=== PATIENT | male | born 1960 | race Caucasian/White ===

== ENCOUNTER 2024-10-21 10:49 | Emergency (ER) | payer OTHER, SELFPAY ==
[2024-10-21 11:25] VITALS: BP 125/83; PULSE 75; RESP 16; TEMP 36.9; O2SAT 95; BMI 37.3
--- NOTE | 2024-10-21 11:28 | XR_ITS ---
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
--- NOTE | 2024-10-21 11:28 | XR_ITS ---
EXAMINATION: Ankle, left 3 views . Technique: Ankle AP, oblique, lateral 3 views Date and time of exam: October 21, 2024 1136 hours INDICATIONS: Left ankle pain beginning 3 days ago. FINDINGS: No acute fracture Mild to moderate osteoarthritis tibiotalar joint 2 mm plantar bony calcaneal spur No fracture IMPRESSION: Mild to moderate osteoarthritis tibiotalar joint 2 mm plantar bony calcaneal spur
--- NOTE | 2024-10-21 11:28 | PD.EDLOWEX ---
Lower Extremity Injury RME/HPI General Chief Complaint: Extremity Injury, Lower Stated Complaint: think broke left ankle x2 days ago/ woke up Time Seen by Provider: 10/21/24 10:59 Arrival date/time: 10/21/24 10:49 63-year-old male presents to the emergency department today complains of left foot and ankle pain patient reports pain ongoing for last 2 days patient reports no direct trauma or injury patient reports no calf pain Limitations: no limitations Related Data Previous Rx's ?Medication ?Instructions ?Recorded lisinopril 40 mg tablet 40 mg PO QDAY #30 tabs 03/24/22 nifedipine 60 mg tablet,extended 60 mg PO QDAY #30 tabs 03/24/22 release cyclobenzaprine 5 mg tablet 5 mg PO TID PRN muscle spasm #14 03/25/22 tabs lidocaine 5 % topical patch 1 patch topical QDAY #30 ea 03/25/22 Allergies Allergy/AdvReac Type Severity Reaction Status Date / Time No Known Allergies Allergy Verified 10/21/24 10:50 Review of Systems Review of Systems Systems Reviewed: All systems reviewed, normal except as documented Constitutional Constitutional: Reports system reviewed and no additional complaints, except as documented, Denies fever(s) and Denies headache(s) Eyes Eyes: Reports system reviewed and no additional complaints, except as documented and Denies blurry vision ENT Ears, Nose, Mouth, and Throat: Reports system reviewed and no additional complaints, except as documented, Denies headache(s), Denies nasal congestion and Denies nasal discharge Cardiovascular Cardiovascular: Reports system reviewed and no additional complaints, except as documented, Denies chest pain and Denies dyspnea Respiratory Respiratory: Reports system reviewed and no additional complaints, except as documented, Denies chest congestion, Denies cough and Denies dyspnea Gastrointestinal Gastrointestinal: Reports system reviewed and no additional complaints, except as documented and Denies abdominal pain Musculoskeletal Musculoskeletal: Reports system reviewed and no additional complaints, except as documented, Reports arthralgias, Denies deformity and Denies joint swelling Integumentary/Breasts Skin/Breast: Reports system reviewed and no additional complaints, except as documented and Denies rash Neurologic Neurologic: Reports system reviewed and no additional complaints, except as documented, Reports as per HPI and Denies headache(s) Past Medical History Past Medical History CARDIAC: Positive Cardiac Disorders, Hypercholesterolemia, Edema and Hypertension; Negative Congestive Heart Failure RESPIRATORY: Negative Chronic Obstructive Pulmonary Disease (COPD) GENITOURINARY: Negative Renal Disease ENDOCRINE: Negative Diabetes Mellitus Type 1 or Diabetes Mellitus Type 2 OTHER HISTORY: Positive Falls; Negative Blood Transfusions or Cancer Family History FAMILY HISTORY: Positive Family Cardiac Disorders Social History SMOKING STATUS: Never smoker SUBSTANCE USE: does not use ED Exam General Limitations: Present no limitations General appearance: Present alert and in no apparent distress Head Head exam: Present atraumatic, normocephalic and normal inspection Eye Eye exam: Present normal appearance, PERRL and EOMI ENT ENT exam: Present normal exam, normal oropharynx and mucous membranes moist Neck Neck exam: Present normal inspection, full ROM and trachea midline Chest Chest inspection: Present normal inspection and symmetric chest wall rise Respiratory Respiratory exam: Present normal lung sounds bilaterally Cardiovascular Cardiovascular exam: Present regular rate, normal rhythm and normal heart sounds Abdominal Exam Abdominal exam: Present soft and normal bowel sounds Extremities Exam Extremities exam: Present normal inspection and full ROM Back Exam Back exam: Present normal inspection and full ROM Neurological Exam Neurological exam: Present alert, oriented X3, CN II-XII intact, normal gait and reflexes normal; Absent motor sensory deficit Psychiatric Psychiatric exam: Present normal affect and normal mood Skin Skin exam: Present warm, dry, intact and normal color Course Quality Measures none Orders Category Date Time Status XR ankle comp LT min 3V Stat Exams 10/21/24 11:28 Completed XR foot comp LT min 3V Stat Exams 10/21/24 11:28 Completed Vital Signs Vital signs: Vital Signs Temperature 98.5 F 10/21/24 11:25 Pulse Rate 75 10/21/24 11:25 Respiratory Rate 16 10/21/24 11:25 Blood Pressure 125/83 10/21/24 11:25 Pulse Oximetry (%) 95 10/21/24 11:25 Oxygen Delivery Method Room Air 10/21/24 11:25 O2 saturation 95% room air within normal limits Extremity Injury, Lower MDM Narrative MDM Narrative:: 63-year-old male presents to the emergency department today complains of left foot and ankle pain patient reports pain ongoing for last 2 days patient reports no direct trauma or injury patient reports no calf pain On exam patient has tenderness left foot and ankle X-ray of the left foot and ankle obtained no acute fracture dislocation noted patient does have arthritis Patient has an ankle brace Patient discharged home in no distress to follow-up with primary care doctor in the next 24 to 48 hours and for any worsening symptoms to return to the ER immediately Patient data External records reviewed:: [facility] previous records Clinical information provided by:: patient Social determinants that could affect healthcare access:: none Patient has the following chronic illnesses:: See history How is presenting disease/condition affected by chronic disease/condition?: caused by Evaluation data The following diagnostics were reviewed and interpreted by me:: radiology exam(s) Lab and/or radiology exams considered but not ordered:: Radiology obtain Interpretation Summary: Reviewed by me Medications / Prescriptions Medications or Prescriptions considered but not ordered:: Given Medication administrations:: Given Consultations Consultation(s) initiated? (list below): No Diagnosis Extremity Injury, Lower Differential Diagnosis: ankle sprain and strain, fracture of toe and ankle fracture Most likely diagnosis given after review of the tests above:: Ankle sprain Admission Indicated Admission indicated?: not indicated Admission Request Was there a request for admission?: No Disposition Plan Disposition Plan: Discharge Discharge Attestation Discharge Attestation: The patient and all family members were given an opportunity to ask questions and understood the discharge instructions. Discharge instructions specifically effects, indications for sooner follow up or return to the emergency department, and the expected course of current diagnosis. Patient condition: Stable Discharge Plan Plan Patient Disposition: HOME (Self Care) Disposition Comment: Stable Prescriptions/Referrals Prescriptions/Med Rec: No Action lidocaine 5 % adhesive patch,medicated 1 patch topical QDAY Qty: 30 0RF Rx Instructions: leave on most painful area for up to 12 hrs cyclobenzaprine 5 mg tablet 5 mg PO TID PRN (Reason: muscle spasm) Qty: 14 0RF lisinopril 40 mg tablet 40 mg PO QDAY Qty: 30 0RF nifedipine 60 mg tablet extended release 60 mg PO QDAY Qty: 30 0RF Problem List Clinical Impression: Ankle arthritis Patient/Caregiver Discharge Instructions Education Materials: ED Osteoarthritis Additional Instructions: Please follow up with your primary care doctor in the next 24-48hrs for any worsening symptoms return here immediately Print Language: Estonian Stand Alone Forms: Mera Award Info., Patient Portal Info Letter PA/[employer] Supervising Physician PA/[employer] Supervising Physician: Dr. Baker
== END 2024-10-21 12:26 | disposition home or self-care (01) ==
PROVIDERS: Emergency Provider Emergency Medicine
DX: M19.072 Primary osteoarthritis, left ankle and foot (principal)
CPT/HCPCS: 73610; 73630; 99283

== ENCOUNTER → 2025-06-11 | Outpatient (CLI) | payer OTHER, SELFPAY ==
--- NOTE | 2025-06-11 10:30 | XR_ITS ---
Examination: CT chest, without intravenous contrast. Sagittal and coronal 2-D reconstructions. Exam date and time: June 11, 2025 1020 hours, comparison November 01, 2009 INDICATIONS: Smoking history years, with coughing 6 months CTDI:vol (mGy) 19.4 DLP: (mGycm) 781 Technique: Multiple 3.0 mm axial sections of the chest to been obtained. Bone and lung density settings are obtained. Sagittal and coronal 2-D reconstructions have been obtained. Low dose protocols were performed. One or more of the following dose reduction techniques were used; automated exposure control, adjustment of the mA and/or KV according to patient size, use of iterative reconstruction technique. Findings: Mild aneurysmal dilatation ascending thoracic aorta 4 cm Pulmonary artery segments are not enlarged. Heavy calcification left anterior descending coronary artery. No paratracheal tracheobronchial or bronchopulmonary adenopathy. 2 mm pulmonary nodule posterior right midlung image 228 3 mm pulmonary nodule left upper lobe image 280 2 mm pulmonary nodule right lower lobe image 319 2 mm pulmonary nodule right lower lobe image 320 No visualized liver splenic lesion No gallstones No pancreatic mass Severe osteopenia with moderate diffuse thoracic degenerative disc disease and prominent thoracic spondylosis IMPRESSION: Mild aneurysmal dilatation ascending thoracic aorta, 4 cm Heavy calcification left anterior descending coronary artery. Noncalcified subcentimeter pulmonary nodules as above, with this study as baseline recommend 6 month follow-up CT chest without contrast
== END | disposition home or self-care (01) ==
PROVIDERS: Referring Provider Nurse Practitioner; Visit Provider Nurse Practitioner
DX: Z12.2 Encounter for screening for malignant neoplasm of respiratory organs (principal); I71.21 Aneurysm of the ascending aorta, without rupture; R91.8 Other nonspecific abnormal finding of lung field; I25.10 Atherosclerotic heart disease of native coronary artery without angina pectoris
CPT/HCPCS: 71271